=== PATIENT | female | born 1985 | race Caucasian/White ===

== ENCOUNTER → 2017-10-17 | Outpatient (CLI) | payer OTHER ==
[~2017-10-17] MED LIST: ACETAMINOPHEN500 MG PO; ASCO500 PO; Amoxil400 MG/5 M PO; Bactrim Ds Tab1 EACH PO; CEPH500 PO; CLIN150 PO; Cleocin HCl300 MG PO; NYST237S MT; OXYACE5T PO; PRED20 PO; Verotin-Gr Cap1 EACH PO
== END | disposition home or self-care (01) ==
LOC: LAB EV 10:29
DX: R30.0 Dysuria (principal)
CPT/HCPCS: 87086

== ENCOUNTER → 2018-04-17 | Outpatient (CLI) | payer OTHER | END | disposition home or self-care (01) | LOC: LAB EV 18:31 → LAB SHORT 18:31 | DX: N39.0 Urinary tract infection, site not specified (principal) | CPT/HCPCS: 87086 ==

== ENCOUNTER → 2019-03-26 | Outpatient (CLI) | payer OTHER | END | disposition home or self-care (01) | LOC: LAB SHORT 07:50 → LAB 07:50 | DX: N92.6 Irregular menstruation, unspecified (principal); R10.9 Unspecified abdominal pain | CPT/HCPCS: 84703; 87086 ==